=== PATIENT | female | born 1945 | race Caucasian/White ===

== ENCOUNTER 2021-08-24 10:08 | Outpatient (CLI) | payer MEDICARE ==
[2021-08-24 14:54] VITALS: BP 131/96
--- NOTE | 2021-08-24 14:54 | SLEEP CARE CONSULTATION ---
Information from patient questionnaire entered by Serafin Kate MA. I have reviewed and concur with the information entered by Serafin Kate MA. This document represents the service I personally performed and the decisions made by , Gilda Gutierrez ARNP. History of Present Illness Service Date and Time: 08/24/2021 1008 Reason for Visit: New patient (ONSET , NO PRIOR STUDIES, ) Chief Complaint: reports: Unrefreshed sleep, Snoring, Observed pauses in breathing, Frequent awakenings at night Date of Onset: 30 years Usual bedtime: 10-11 PM Time it takes to fall asleep: UP TO 8 HOURS Snores at night: Yes Observed to quit breathing while asleep: Yes Number of times waking at night: 5 Reasons for waking at night: reports: Bathroom. denies: Choking, Snoring, Gasping for air Toss, Turn, or Twitch while sleeping: No Recalls having dreams: Yes Usually gets out of bed at: [id number] Feels refreshed in the morning: No (usually, unless has 8-9 hours sleep which is rare) Morning headache: No Sleepy or fatigued during the day: Yes Ever fallen asleep while driving: No (don't drive usually) Takes day naps: No Dreams during day naps: Yes Prior sleep studies: No Additional HPI information: I had the pleasure of seeing MARCELO HERNANDEZ today regarding the possibility of her having a sleep disorder. Her current complaints are snoring, observed pauses in breathing and unrefreshed sleep. Her daughter has encouraged her to come because of her snoring and she stops breathing at night. She wakes up frequently at night and will sometimes not be able to return to sleep. She does have Zolpidem for sleep when needed. She has tried many techniques to help her go to sleep and stay asleep. She feels when she is able to sleep through the night she is awake and alert the next day. Otherwise she will be tired in the morning and throughout the day. - Parasomnia Symptoms Ever been unable to move upon waking from sleep: No Walks in sleep: No Talks in sleep: No Ever acted out dreams in sleep: No Ever felt weak in the knees when startled or emotional: No Bothered by creepy, crawly, restless sensations in legs: Yes (sometimes) Problems with memory or concentration: No Subjective Initial [place] Sleepiness Scale score: 9 (08/2021) Past Medical History Past Medical History: reports: Hypertension, Diabetes, Stroke (2016), Coronary Heart Disease, Insulin resistance, Hypothyroidism, Anxiety, Depression, Other ([place] 2020) Social History The patient's occupation is a RETIRED. Patient is and lives in . Have you smoked in the past 12 months: No Cigarettes per day (20/pack): 20 Years of smokin Quit date: 1994 Smoking Pack Years: 30.0 Alcohol use: No Caffeine use: No Family History Family history of sleep disordered breathing: Yes Family Hx Sleep Apnea: Mother: Snoring, Sibling: Sleep apnea - Treated Allergies and Home Medications Drug allergies reviewed: Yes (NKDA) Home medication list reviewed: Yes Allergy and home medication list: Medications: Alpha Lipoic Acid Amlodipine Aspirin Atorvastatin B-12 Basaglar kwikpen Brilinta Carvedilol COQ10 Dulaglutide Ferrous sulfate Fish oil Isosorbide mononitrate Levothyroxine Losartan Nitrofurantoin Novolog flexpen Potassium chloride Prednisone Zolpidem Review of Systems Weight loss over past 5 years: 5 lbs Cardiovascular: reports: high blood pressure, leg or foot swelling Respiratory: reports: shortness of breath (last 2 yrs, incon) Urinary: reports: frequency, other (self catheter) Psychiatric: reports: anxiety, depression Ear/Nose/Throat: reports: dry mouth/throat Endocrine: reports: thyroid disease, increased urination Immunologic: reports: sneezing, allergies to food or environment (pollen) Physical Exam Vital signs obtained and entered by: Viet KTAE CMA BRIAN Blood Pressure: 131/96 (PULSE 68, RIGHT, RESP 16) Heart Rate: 72 O2 Saturation: 99 (CLOTHE) Height: 5 ft 7 in Weight: 161 lb Body Mass Index: 25.2 BMI Classification: Overweight Mouth and throat: narrow oropharynx Soft palate: long Hard palate: normal Uvula: normal Uvula visualization: 25% Mallampati Class III Tongue: enlarged in size with teeth cheung on lateral edges Tonsils: absent bilaterally Chin and jaw: normal size and position Neck: normal w/o lymphadenopathy or thyromegaly Heart: regular rate and rhythm Lungs: clear bilaterally Impression and Plan 1. Suspected Obstructive Sleep Apnea-Hypopnea Syndrome, as suggested by a history of loud and irregular snoring, observed cessation of breath while asleep, frequent awakening during the night and unrefreshed sleep. Narrow oropharynx and obesity are common predisposing factors for obstructive sleep apnea-hypopnea syndrome. I recommend proceeding to polysomnography to confirm the diagnosis and to assess severity. If the patient has significant sleep disordered breathing, a manual CPAP titration study will also be performed to find the optimal treatment pressure. I informed the patient of what the sleep studies involve and after some discussion, obtained agreement to proceed. The pathophysiology of obstructive sleep apnea-hypopnea syndrome was discussed with the patient and health risks of cardiovascular and cerebrovascular disease if not treated. Risks of drowsy driving discussed in detail and patient advised to avoid long distance driving and to side puller at the first sign of drowsiness. Patient agreed to plan. * Schedule polysomnography +- manual CPAP titration study and return in 1-2 weeks after the study to discuss results. * Avoid long distance driving or driving when feeling sleepy. * Avoid alcohol, sedative and muscle relaxant around bedtime. * Attempt to lose weight. * Review instructions provided by trained office staff on how to prepare for the sleep study. * Return for follow-up after sleep study completed. Counseling Topics: Weight loss health impact Visit Type: In Office Time Spent with Patient (minutes): 34 Provider Statement: I spent 100% of the Face to Face Visit with the patient with greater than 50% spent counseling the patient and coordination of care.
== END 2021-08-24 10:09 | disposition home or self-care (01) ==
LOC: SC 10:08
PROVIDERS: ATTEND Nurse Practitioner Family
DX: G47.8 Other sleep disorders (principal); R06.81 Apnea, not elsewhere classified; R06.83 Snoring
CPT/HCPCS: 99203; G0463; 99212

== ENCOUNTER 2021-09-07 10:44 | Outpatient (CLI) | payer MEDICARE | END 2021-09-07 10:45 | disposition home or self-care (01) | LOC: SC 10:44 | PROVIDERS: ATTEND Nurse Practitioner Family | DX: G47.33 Obstructive sleep apnea (adult) (pediatric) (principal); R09.02 Hypoxemia | CPT/HCPCS: G0399 ×2; 95806 ==

== ENCOUNTER 2021-10-02 15:42 | Outpatient (CLI) | payer MEDICARE ==
--- NOTE | 2021-10-02 15:39 | SLEEP CARE CONSULTATION ---
Information from patient questionnaire entered by Serafin Elizalde MA. I have reviewed and concur with the information entered by Serafin Elizalde MA. This document represents the service I personally performed and the decisions made by , Gilda Gutierrez ARNP. History of Present Illness Service Date and Time: 10/02/2021 1620 Initial [place] Sleepiness Scale score: 9 (08/2021) Current [place] Sleepiness Scale score: 4 Additional HPI information: MARCELO HERNANDEZ returns via video telehealth visit for follow up and results of the recently performed home sleep study. I explained the pathophysiology behind obstructive sleep apnea. We then spent quite a bit of time discussing different treatment options. For mild obstructive sleep apnea, surgery and oral appliance are alternatives to nasal CPAP therapy but in moderate or severe cases, nasal CPAP is the most effective and reliable treatment. Patient states she did not sleep at all during the time that she had the HST leads connected. She worked from 11:30 PM to 7 AM and then took it off. She fell asleep about 11 AM the day after. Sleep Study - Results Type of Sleep Study: Home sleep study (F/U HOME STUDY, 09/08/21 [facility],) Prior sleep studies: No Polysomnography/Home Sleep Study results: Physician Impression: The quality of the study is fair due to partial loss of pulse oximetry signal. The length of the study is adequate (> 240 minutes). Please also see the tabulated and graphic data. 1. Obstructive Sleep Apnea-Hypopnea (ICD-10 G47.33), mild, with an AHI of 8.3/hr and macarena SaO2 of 83%. During the study, the patient had 9 apneas (9 obstructive, 0 central, 0 mixed) and 21 hypopneas. The longest episode lasted 47.5 seconds. The respiratory events occurred independently of sleep stage and body position (supine AHI was 7.8 and non-supine, 8.76). 2. Hypoxemia (ICD-10 R09.02), minimal, with the lowest oxygen saturation of 83 % and 0.6 minutes with SaO2 under 90%. Baseline oxygen saturation was normal (Average oxygen saturation was 94%). Allergies and Home Medications Home medication list reviewed: Yes (no changes) Review of Systems Review of systems same as previous: Yes (no changes) Physical Exam Vital signs obtained and entered by: Viet ELIZALDE CMA AAMA Height: 5 ft 7 in Weight: 163 lb (per pt report) Body Mass Index: 25.5 BMI Classification: Overweight Impression and Plan 1. Suspected Obstructive Sleep Apnea-Hypopnea Syndrome, as suggested by a history of loud and irregular snoring, observed cessation of breath while asleep, frequent awakening during the night, unrefreshed sleep, and excessive daytime sleepiness. Patient reported not sleeping the whole time she had the HST device in place. Her results did show some sleep apnea but since she reportedly did not sleep we need to have her retest. She states she can take her 5 mg Ambien with her Calm sleep supplement and magnesium which should help her to go to sleep the night of the study. I agreed that she should follow her routine to be able to sleep the night of the study. She voiced understanding. I recommend proceeding to polysomnography to confirm the diagnosis and to assess severity. If the patient has significant sleep disordered breathing, a manual CPAP titra tion study will also be performed to find the optimal treatment pressure. I informed the patient of what the sleep studies involve and after some discussion, obtained agreement to proceed. The pathophysiology of obstructive sleep apnea-hypopnea syndrome was discussed with the patient and health risks of cardiovascular and cerebrovascular disease if not treated. Risks of drowsy driving discussed in detail and patient advised to avoid long distance driving and to tack puller machine at the first sign of drowsiness. Patient agreed to plan. * Schedule polysomnography * Avoid alcohol, sedative and muscle relaxant around bedtime. * Attempt to lose weight. * Review instructions provided by trained office staff on how to prepare for the sleep study. * Return for follow-up after sleep study completed. Counseling Topics: Weight loss health impact Visit Type: Telehealth Video ([phone] HOME) Video Type: Doximity Patient Location: Home Location of Provider: Office Patient agrees and consents to this telehealth visit type: Yes Patient agrees to have their insurance billed: Yes Time Spent with Patient (minutes): 27 Provider Statement: I spent 100% of the Telehealth Video Call with the patient with greater than 50% spent counseling the patient and coordination of care.
== END 2021-10-02 15:43 | disposition home or self-care (01) ==
LOC: SC 15:42
PROVIDERS: ATTEND Nurse Practitioner Family
DX: G47.10 Hypersomnia, unspecified (principal); R06.81 Apnea, not elsewhere classified; G47.8 Other sleep disorders; R06.83 Snoring

== ENCOUNTER 2021-12-19 12:48 | Outpatient (CLI) | payer MEDICARE ==
[2021-12-19 13:11] LABS: BASOPHILS % (AUTO) 0.5 %; EOSINOPHILS # (AUTO) 0.1 10^3/uL (0.0-0.7); EOSINOPHILS % (AUTO) 1.3 %; HCT - HEMATOCRIT 38.8 % (37.0-47.0); LYMPHOCYTES # (AUTO) 2.2 10^3/uL (1.5-3.5); LYMPHOCYTES % (AUTO) 28.3 %; MEAN CORPUSCULAR HEMOGLOBIN 29.8 pg (27.0-31.0); MEAN CORPUSCULAR HGB CONC 33.5 g/dL (32.0-36.0); MEAN PLATELET VOLUME 9.2 fL (7.9-10.8); MONOCYTES # (AUTO) 0.5 10^3/uL (0.0-1.0); MONOCYTES % (AUTO) 5.7 %; NEUTROPHILS % (AUTO) 63.7 %; PLT - PLATELET COUNT 271 10^3/uL (130-450); RED BLOOD COUNT 4.36 10^6/uL (4.20-5.40); RED CELL DISTRIBUTION WIDTH 14.5 % (12.0-15.0); WHITE BLOOD COUNT 7.9 x10^3/uL (4.8-10.8)
[2021-12-19 13:20] LABS: ALBUMIN 3.9 g/dL (3.2-5.5); ALBUMIN/GLOBULIN RATIO 1.3 (1.0-2.2); BILIRUBIN,TOTAL 0.7 mg/dL (0.2-1.0); CALCIUM 9.3 mg/dL (8.5-10.3); CREATININE 0.9 mg/dL (0.4-1.0); POTASSIUM 3.1 mmol/L (3.5-5.0); TOTAL PROTEIN 6.8 g/dL (6.7-8.2)
[2021-12-19 13:37] LABS: THYROID STIMULATING HORMONE 9.88 uIU/mL (0.34-5.60)
[2021-12-19 13:39] LABS: FREE T4 (FREE THYROXINE) 0.78 ng/dL (0.58-1.64)
[2021-12-19 20:57] LABS: ESTIMATED AVERAGE GLUCOSE 186 mg/dL (70-100); HEMOGLOBIN A1c% 8.1 % (4.27-6.07)
== END 2021-12-19 12:49 | disposition home or self-care (01) ==
LOC: LAB 12:48
PROVIDERS: ATTEND Student in an Organized Health Care Education/Training Program
DX: E89.0 Postprocedural hypothyroidism (principal); R74.8 Abnormal levels of other serum enzymes; E13.22 Other specified diabetes mellitus with diabetic chronic kidney disease; N18.31 Chronic kidney disease, stage 3a; I15.8 Other secondary hypertension
CPT/HCPCS: 36415; 80053; 83036; 83520; 84439; 84443; 84445; 84480; 85025

== ENCOUNTER 2022-02-20 12:48 | Outpatient (CLI) | payer MEDICARE ==
[2022-02-20 13:30] LABS: ALBUMIN 3.8 g/dL (3.2-5.5); ALBUMIN/GLOBULIN RATIO 1.5 (1.0-2.2); BILIRUBIN,TOTAL 0.8 mg/dL (0.2-1.0); CALCIUM 9.1 mg/dL (8.5-10.3); POTASSIUM 3.7 mmol/L (3.5-5.0); TOTAL PROTEIN 6.4 g/dL (6.7-8.2)
[2022-02-20 13:32] LABS: CHOL/HDL RATIO 2.6 (<4.4); CHOLESTEROL 161 mg/dL; HDL CHOLESTEROL 62 mg/dL; LDL CHOLESTEROL,CALCULATED 83 mg/dL; LDL/HDL RATIO 1.3 (<4.4); TRIGLYCERIDES 80 mg/dL; VLDL CHOLESTEROL 16 mg/dL
[2022-02-20 13:45] LABS: THYROID STIMULATING HORMONE 8.31 uIU/mL (0.34-5.60)
[2022-02-20 13:47] LABS: FREE T4 (FREE THYROXINE) 0.9 ng/dL (0.58-1.64)
== END 2022-02-20 12:49 | disposition home or self-care (01) ==
LOC: LAB 12:48
PROVIDERS: ATTEND Nurse Practitioner Family
DX: I10 Essential (primary) hypertension (principal); E78.5 Hyperlipidemia, unspecified; E89.0 Postprocedural hypothyroidism
CPT/HCPCS: 36415; 80053; 80061; 83721; 84439; 84443

== ENCOUNTER 2022-03-15 16:35 | Outpatient (CLI) | payer MEDICARE | END 2022-03-15 16:36 | disposition critical access hospital (66) | LOC: EMS 16:35 | DX: R41.0 Disorientation, unspecified (principal); R46.4 Slowness and poor responsiveness; R40.0 Somnolence; R00.1 Bradycardia, unspecified | CPT/HCPCS: A0425; A0427 ==

== ENCOUNTER 2022-03-15 17:00 | Emergency (ER) | payer MEDICARE ==
--- NOTE | 2022-03-15 17:14 | ED Physician Documentation ---
History of Present Illness - Stated complaint Stated Complaint: AMS - Chief complaint Chief Complaint: Neuro - History obtained from History obtained from: Patient, EMS - History of Present Illness Timing: Today Pain level max: 0 Pain level now: 0 - Additonal information Additional information: Patient is a 76-year-old female brought in to the emergency department by EMS for altered mental status today. She reportedly had driven herself to a local pharmacy and she was wandering aimlessly, 911 was called by bystanders. No witnessed trauma. EMS states that her blood pressure was normal, heart rate was found to be in the 50s. They stated that they gave her 0.5 mg of atropine and her heart rate went into the 60s, no significant change in her mental status. The paramedics attempted to contact the patient's daughter, but no answer on the phone. There is no other history available at this time. She does appear to be a diabetic and has a glucose monitor in her right lower abdomen. EMS states her blood sugar was normal. Review of Systems Unable to obtain: AMS PD PAST MEDICAL HISTORY - Past Medical History Cardiovascular: Hypertension Endocrine/Autoimmune: Type 2 diabetes, HyPOthyroidism Other Past Medical History: sleep apnea - Present Medications Home Medications: Ambulatory Orders Medication Instructions Recorded Confirmed Aspirin [Aspirin EC] 81 mg PO DAILY 03/15/22 03/15/22 Atorvastatin Calcium 40 mg PO DAILY 03/15/22 03/15/22 Carvedilol [Coreg] 6.25 mg PO BID 03/15/22 03/15/22 Insulin Aspart [NovoLOG] 03/15/22 Insulin Glargine,Hum.rec.anlog 32 unit SUBQ DAILY PM 03/15/22 03/15/22 [Basaglar Kwikpen U-100] Isosorbide Mononitrate [Isosorbide 30 mg PO DAILY 03/15/22 03/15/22 Mononitrate ER] Levothyroxine Sodium 100 mcg PO DAILY 03/15/22 03/15/22 [Levothyroxine] Losartan [Cozaar] 50 mg PO BID 03/15/22 03/15/22 Potassium Chloride [Klor-Con 10] 20 meq PO 03/15/22 Zolpidem [Ambien] 5 mg PO HS PRN 03/15/22 03/15/22 amLODIPine [Norvasc] 10 mg PO DAILY 03/15/22 03/15/22 cephALEXin [Keflex] 500 mg PO Q6H #20 cap 03/15/22 - Allergies Allergies/Adverse Reactions: Allergies Allergy/AdvReac Type Severity Reaction Status Date / Time No Known Drug Allergies Allergy Verified 03/15/22 17:20 PD ED PE NORMAL - Vitals Vital signs reviewed: Yes - General General: No acute distress, Well developed/nourished - HEENT HEENT: Atraumatic, PERRL, Moist mucous membranes, Pharynx benign - Neck Neck: Supple, no meningeal sign - Cardiac Cardiac: RRR, Strong equal pulses - Respiratory Respiratory: No respiratory distress, Clear bilaterally - Abdomen Abdomen: Soft, Non tender, Non distended - Derm Derm: Warm and dry - Extremities Extremities: No edema, No calf tenderness / cord - 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 Mild slurring of speech) Eye Opening: Spontaneous Motor: Obeys Commands Verbal: Confused GCS Score: 14 Results - Vitals Vitals: Vital Signs - 24 hr 03/15/22 03/15/22 03/15/22 17:08 19:05 20:47 Temperature 36.8 C 35.7 C L Heart Rate 65 69 63 Respiratory 17 16 16 Rate Blood Pressure 126/75 141/72 H 129/59 L O2 Saturation 96 95 98 Oxygen O2 Source Room air - EKG (time done) 1743 Rate: Rate (enter#) (65) Rhythm: NSR [place]: Normal Intervals: Normal ND QRS: Normal Ischemia: Normal ST segments - Labs Labs: Laboratory Tests 03/15/22 03/15/22 03/15/22 17:20 17:20 17:20 WBC 6.7 RBC 3.97 L Hgb 11.4 L Hct 35.7 L MCV 89.9 MCH 28.7 MCHC 31.9 L RDW 13.8 Plt Count 245 MPV 9.1 Neut # (Auto) 4.5 Lymph # (Auto) 1.5 [place] # (Auto) 0.5 Eos # (Auto) 0.1 Baso # (Auto) 0.1 Absolute Nucleated RBC 0.00 Nucleated RBC % 0.0 Sodium 135 Potassium 3.8 Chloride 104 Carbon Dioxide 24 Anion Gap 7.0 BUN 23 H Creatinine 0.9 Estimated GFR (MDRD) 61 L Glucose 205 H Estimat Average Glucose Hemoglobin A1c % Calcium 8.7 Total Bilirubin 0.7 AST 19 ALT 23 Alkaline Phosphatase 58 Total Protein 6.0 L Albumin 3.6 Globulin 2.4 Albumin/Globulin Ratio 1.5 Lipase 26 TSH 6.55 H Urine Color Urine Clarity Urine pH Ur Specific [place] Urine Protein Urine Glucose (UA) Urine Ketones Urine Occult Blood Urine Nitrite Urine Bilirubin Urine Urobilinogen Ur Leukocyte Esterase Urine RBC Urine WBC Urine WBC Clumps Ur Squamous Epith Cells Amorphous Sediment Urine Bacteria Ur Microscopic Review Urine Culture Comments Salicylates < 6.0 Urine Opiates Screen Ur Oxycodone Screen Urine Methadone Screen Ur Propoxyphene Screen Acetaminophen < 10 L Ur Barbiturates Screen Ur Tricyclics Screen Ur Phencyclidine Scrn Ur Amphetamine Screen U Methamphetamines Scrn U Benzodiazepines Scrn Urine Cocaine Screen U Cannabinoids Screen Ethyl Alcohol < 5.0 03/15/22 03/15/22 17:20 18:17 WBC RBC Hgb Hct MCV MCH MCHC RDW Plt Count MPV Neut # (Auto) Lymph # (Auto) [place] # (Auto) Eos # (Auto) Baso # (Auto) Absolute Nucleated RBC Nucleated RBC % Sodium Potassium Chloride Carbon Dioxide Anion Gap BUN Creatinine Estimated GFR (MDRD) Glucose Estimat Average Glucose 212 H Hemoglobin A1c % 9.0 H Calcium Total Bilirubin AST ALT Alkaline Phosphatase Total Protein Albumin Globulin Albumin/Globulin Ratio Lipase TSH Urine Color LT. YELLOW Urine Clarity CLOUDY Urine pH 6.0 Ur Specific [place] 1.015 Urine Protein NEGATIVE Urine Glucose (UA) NEGATIVE Urine Ketones NEGATIVE Urine Occult Blood TRACE-INTA Urine Nitrite POSITIVE H Urine Bilirubin NEGATIVE Urine Urobilinogen 0.2 (NORMAL) Ur Leukocyte Esterase MODERATE H Urine RBC 0-5 Urine WBC >25 H Urine WBC Clumps PRESENT Ur Squamous Epith Cells MANY Squamous H Amorphous Sediment None Seen Urine Bacteria Many H Ur Microscopic Review INDICATED Urine Culture Comments NOT INDICATED Salicylates Urine Opiates Screen NEGATIVE Ur Oxycodone Screen NEGATIVE Urine Methadone Screen NEGATIVE Ur Propoxyphene Screen NEGATIVE Acetaminophen Ur Barbiturates Screen NEGATIVE Ur Tricyclics Screen NEGATIVE Ur Phencyclidine Scrn NEGATIVE Ur Amphetamine Screen NEGATIVE U Methamphetamines Scrn NEGATIVE U Benzodiazepines Scrn NEGATIVE Urine Cocaine Screen NEGATIVE U Cannabinoids Screen NEGATIVE Ethyl Alcohol - Rads (name of study) Head CT Radiology: Final report received, EMP read contemporaneously, See rad report (No acute abnormality) PD MEDICAL DECISION MAKING - ED course Complexity details: reviewed results, re-evaluated patient (Patient's mental status is greatly improved compared to arrival. She is GCS 15. Still slightly slow to respond to questions.), considered differential, d/w patient, d/w family ED course: 76-year-old female with altered mental status. Gradually improved in the emergency department and is closer to her baseline. I spoke with her daughter who is a yard goods salesperson, we reviewed the patient's laboratory findings and CT findings. Her daughter did come to the bedside and was with the patient in the emergency department. The patient appears to have likely taken a dose of Ambien causing her altered mental status. I suspect that this will clear as the Ambien clears out of her system. Patient does not remember much of the events leading to her emergency department visit. She states she felt like she was "sleeping" when she was driving. Recommend that she stop Ambien and follow-up with her doctor for further care. No focal neurological deficits. Patient and family counseled regarding signs and symptoms for which I believe and urgent re- evaluation would be necessary. Patient with good understanding of and agreement to plan and is comfortable going home at this time This document was made in part using voice recognition software. While efforts are made to proofread this document, sound alike and grammatical errors may occur. Departure - Departure Disposition: 01 Home, Self Care Clinical Impression: Altered mental status Qualifiers: Altered mental status type: unspecified Qualified Code(s): R41.82 - Altered mental status, unspecified Urinary tract infection Qualifiers: Urinary tract infection type: acute cystitis Hematuria presence: without hematuria Qualified Code(s): N30.00 - Acute cystitis without hematuria Condition: Good Instructions: ED Altered Loc, ED UTI Cystitis Female Follow-Up: BIJU CAST MD [Primary Care Provider] - Within 1 week Prescriptions: cephALEXin [Keflex] 500 mg PO Q6H #20 cap Comments: Your prescriptions were sent to [facility] in [place]. Please take all antibiotics until gone. Return if you worsen. I would recommend that you stop taking Ambien as this appears to have caused your symptoms tonight. Please follow-up with your doctor for further care. Your head CT and laboratory studies do not show any significant abnormalities. You do have a UTI. Discharge Date/Time: 03/15/22 21:08
[2022-03-15 17:29] LABS: BASOPHILS # (AUTO) 0.1 10^3/uL (0.0-0.1); BASOPHILS % (AUTO) 0.7 %; EOSINOPHILS # (AUTO) 0.1 10^3/uL (0.0-0.7); EOSINOPHILS % (AUTO) 2.1 %; HCT - HEMATOCRIT 35.7 % (37.0-47.0); HGB - HEMOGLOBIN 11.4 g/dL (12.0-16.0); LYMPHOCYTES # (AUTO) 1.5 10^3/uL (1.5-3.5); LYMPHOCYTES % (AUTO) 22.9 %; MEAN CORPUSCULAR HEMOGLOBIN 28.7 pg (27.0-31.0); MEAN CORPUSCULAR HGB CONC 31.9 g/dL (32.0-36.0); MEAN CORPUSCULAR VOLUME 89.9 fL (81.0-99.0); MEAN PLATELET VOLUME 9.1 fL (7.9-10.8); MONOCYTES # (AUTO) 0.5 10^3/uL (0.0-1.0); MONOCYTES % (AUTO) 6.9 %; NEUTROPHILS # (AUTO) 4.5 10^3/uL (1.5-6.6); PLT - PLATELET COUNT 245 10^3/uL (130-450); RED BLOOD COUNT 3.97 10^6/uL (4.20-5.40); RED CELL DISTRIBUTION WIDTH 13.8 % (12.0-15.0); WHITE BLOOD COUNT 6.7 x10^3/uL (4.8-10.8)
[2022-03-15 17:42] LABS: ACETAMINOPHEN < 10 ug/mL (10-30); ALBUMIN 3.6 g/dL (3.2-5.5); ALBUMIN/GLOBULIN RATIO 1.5 (1.0-2.2); ALKALINE PHOSPHATASE 58 IU/L (42-121); ALT ALANINE AMINOTRANSFERASE 23 IU/L (10-60); AST ASPARTATE AMINOTRANSFERASE 19 IU/L (10-42); BILIRUBIN,TOTAL 0.7 mg/dL (0.2-1.0); BUN - BLOOD UREA NITROGEN 23 mg/dL (6-20); CALCIUM 8.7 mg/dL (8.5-10.3); CARBON DIOXIDE - CO2 24 mmol/L (21-32); CHLORIDE 104 mmol/L (101-111); CREATININE 0.9 mg/dL (0.4-1.0); ETOH - ETHANOL < 5.0 mg/dL; GFR - MDRD 61 (>89); GLUCOSE 205 mg/dL (70-100); LIPASE 26 U/L (22-51); POTASSIUM 3.8 mmol/L (3.5-5.0); SALICYLATE < 6.0 mg/dL; SODIUM 135 mmol/L (135-145)
--- NOTE | 2022-03-15 17:51 | CT Report ---
PROCEDURE: HEAD WO INDICATIONS: altered mental status TECHNIQUE: Noncontrast 4.5 mm thick angled axial sections acquired from the foramen magnum to the vertex. For r adiation dose reduction, the following was used: automated exposure control, adjustment of mA and/or kV according to patient size. COMPARISON: None. FINDINGS: Image quality: Excellent. CSF spaces: Basal cisterns are patent. No extra-axial fluid collections. Ventricles are normal in size and shape. Brain: No midline shift. No intracranial masses or hemorrhage. Prominent ill-defined periventricula r white matter hypodensities, likely microvascular ischemic change. Skull and face: Calvarium and visualized facial bones are intact, without suspicious lesions. Sinuses: Visualized sinuses and mastoids are clear. IMPRESSION: No intracranial hemorrhage or other acute intracranial abnormality. Reviewed by: Jasson Byers MD on 03/15/2022 5:50 PM PDT Approved by: Jasson Byers MD on 03/15/2022 5:50 PM PDT Station ID: [id number]
[2022-03-15 18:26] LABS: MUDS CUTOFF CONCENTRATIONS CUTOFF CONC BELOW:
[2022-03-15 18:27] LABS: BILIRUBIN,URINE NEGATIVE (NEGATIVE); GLUCOSE, URINE (UA) NEGATIVE (NEGATIVE); KETONES,URINE (UA) NEGATIVE (NEGATIVE); LEUKOCYTE ESTERASE, URINE MODERATE (NEGATIVE); NITRITE,URINE POSITIVE (NEGATIVE); OCCULT BLOOD,URINE TRACE-INTA (NEGATIVE); PROTEIN,URINE NEGATIVE (NEGATIVE); UROBILINOGEN,URINE 0.2 (NORMAL) E.U./dL (NORMAL)
[2022-03-15 18:28] LABS: CLARITY,URINE CLOUDY (CLEAR)
[2022-03-15 18:38] LABS: AMPHETAMINE SCREEN,URINE NEGATIVE (NEGATIVE); BARBITURATE SCREEN,UR NEGATIVE (NEGATIVE); BENZODIAZEPINES SCREEN, URINE NEGATIVE (NEGATIVE); COCAINE SCREEN URINE NEGATIVE (NEGATIVE); METHADONE SCREEN, URINE NEGATIVE (NEGATIVE); METHAMPHETAMINES SCREEN, URINE NEGATIVE (NEGATIVE); OPIATE SCREEN, URINE NEGATIVE (NEGATIVE); OXYCODONE SCREEN, URINE NEGATIVE (NEGATIVE); PROPOXYPHENE SCREEN, URINE NEGATIVE (NEGATIVE); THC CANNABINOID SCREEN, URINE NEGATIVE (NEGATIVE); TRICYCLIC ANTIDEPRESSANT,URINE NEGATIVE (NEGATIVE)
[2022-03-15 18:41] LABS: BACTERIA,URINE Many /HPF (None Seen); RBC,URINE 0-5 /HPF (0-5); SQUAMOUS EPITHELIAL CELL,UR MANY Squamous (<= Few); WBC CLUMPS,URINE PRESENT; WBC,URINE >25 /HPF (0-5)
[2022-03-15 18:42] LABS: AMORPHOUS SEDIMENT,UR None Seen /LPF
[2022-03-15] MEDS ORDERED: cefTRIAXone 1 GM VIAL IVP STA (18:46)
[2022-03-15 20:48] VITALS: BP 129/59
[2022-03-15 20:54] LABS: ESTIMATED AVERAGE GLUCOSE 212 mg/dL (70-100)
== END 2022-03-15 21:08 | disposition home or self-care (01) ==
LOC: EDUNIT# → ED 17:00
DX: N30.00 Acute cystitis without hematuria (principal); E11.9 Type 2 diabetes mellitus without complications; Z96.41 Presence of insulin pump (external) (internal); Z79.4 Long term (current) use of insulin; I10 Essential (primary) hypertension
CPT/HCPCS: 36415; 51701; 70450; 80053; 80306; 80307; 81001; 83036; 83690; 84443; 85025; 93005; 96374; 99284; 99285; G0480; 80320; 80329; 81003; 87086

== ENCOUNTER 2022-11-20 12:02 | Outpatient (CLI) | payer MEDICARE, MEDICAID ==
[2022-11-20 14:51] LABS: CALCIUM 8.7 mg/dL (8.5-10.3); POTASSIUM 3.6 mmol/L (3.5-5.0)
== END 2022-11-20 12:03 | disposition home or self-care (01) ==
LOC: LAB.S 12:02
PROVIDERS: ATTEND Internal Medicine
DX: I10 Essential (primary) hypertension (principal)
CPT/HCPCS: 36415; 80048

== ENCOUNTER 2023-12-17 13:30 | Outpatient (CLI) | payer MEDICARE, MEDICAID ==
[2023-12-17 19:44] LABS: BASOPHILS # (AUTO) 0.1 10^3/uL (0.0-0.1); BASOPHILS % (AUTO) 0.9 %; EOSINOPHILS # (AUTO) 0.2 10^3/uL (0.0-0.7); EOSINOPHILS % (AUTO) 3.6 %; HCT - HEMATOCRIT 39.6 % (37.0-47.0); HGB - HEMOGLOBIN 12.6 g/dL (12.0-16.0); LYMPHOCYTES # (AUTO) 1.7 10^3/uL (1.5-3.5); LYMPHOCYTES % (AUTO) 26.7 %; MEAN CORPUSCULAR HEMOGLOBIN 28.3 pg (27.0-31.0); MEAN CORPUSCULAR HGB CONC 31.8 g/dL (32.0-36.0); MEAN PLATELET VOLUME 10.6 fL (7.9-10.8); MONOCYTES # (AUTO) 0.5 10^3/uL (0.0-1.0); MONOCYTES % (AUTO) 7.8 %; NEUTROPHILS # (AUTO) 3.9 10^3/uL (1.5-6.6); NEUTROPHILS % (AUTO) 60.8 %; PLT - PLATELET COUNT 301 10^3/uL (130-450); RED BLOOD COUNT 4.45 10^6/uL (4.20-5.40); RED CELL DISTRIBUTION WIDTH 14.5 % (12.0-15.0); WHITE BLOOD COUNT 6.4 x10^3/uL (4.8-10.8)
[2023-12-17 19:57] LABS: ALBUMIN 4.2 g/dL (3.2-5.5); ALBUMIN/GLOBULIN RATIO 1.6 (1.0-2.2); ALKALINE PHOSPHATASE 102 IU/L (42-121); ALT ALANINE AMINOTRANSFERASE 24 IU/L (10-60); AST ASPARTATE AMINOTRANSFERASE 22 IU/L (10-42); BILIRUBIN,TOTAL 0.7 mg/dL (0.2-1.0); BUN - BLOOD UREA NITROGEN 16 mg/dL (6-20); CALCIUM 9.7 mg/dL (8.5-10.3); CARBON DIOXIDE - CO2 30 mmol/L (21-32); CHLORIDE 102 mmol/L (101-111); CREATININE 0.9 mg/dL (0.6-1.3); CRP - C-REACTIVE PROTEIN < 0.5 mg/dL (<0.5); GFR - MDRD 61 (>89); GLUCOSE 150 mg/dL (74-104); POTASSIUM 3.5 mmol/L (3.5-4.5); SODIUM 138 mmol/L (135-145); TOTAL PROTEIN 6.9 g/dL (6.4-8.9)
== END 2023-12-17 13:31 | disposition home or self-care (01) ==
LOC: LAB.S 13:30
PROVIDERS: ATTEND Internal Medicine Transplant Hepatology
DX: K51.311 Ulcerative (chronic) rectosigmoiditis with rectal bleeding (principal)
CPT/HCPCS: 36415; 80053; 85025; 85651; 86140